=== PATIENT | male | born 1935 | race African-American/Black ===

== ENCOUNTER 2021-08-17 22:55 | Emergency (ER) | payer OTHER ==
[~2021-08-17] VITALS: Ht 177.8 cm; Wt 70.0 kg
[2021-08-17] MEDS ORDERED: MORPHINE SULFATE 4 MG/ML CPJ (NOT FOR IM USE) IV ONE (23:15)
[2021-08-17] MEDS ORDERED: NITROGLYCERIN 0.4MG TABLET SL SL PRN (23:15)
[2021-08-17] MEDS ORDERED: ASPIRIN 81MG TABLET PO ONE (23:15)
[2021-08-17 23:32] LABS: HEMATOCRIT. 47.9 % (42.0-52.0); HEMOGLOBIN. 14.5 g/dL (14.0-18.0); MEAN CORPUSCULAR HEMOGLOBIN 22.6 pg (28.0-32.0); MEAN CORPUSCULAR VOLUME 74.8 fL (80.0-94.0); RED BLOOD CELL COUNT 6.41 mill/uL (4.7-6.1); RED CELL DISTRIBUTION WIDTH 18.8 % (11.6-14.6)
[2021-08-17 23:35] LABS: PLATELET 1269 x1000/uL (130-400)
[2021-08-17 23:45] LABS: CHLORIDE 97 mEq/L (98-107)
[2021-08-18] LABS: PLATELET ESTIMATE INCREASED
[2021-08-18] MEDS ORDERED: ENOXAPARIN 80MG/0.8ML SYR SUBCUT NR (06:30)
[2021-08-18 06:33] VITALS: BP 140/59
== END 2021-08-18 06:48 | disposition short-term general hospital (02) ==
LOC: ER 22:55
DX: I24.9 Acute ischemic heart disease, unspecified (principal); D75.839 Thrombocytosis, unspecified; J44.9 Chronic obstructive pulmonary disease, unspecified; Z20.822 Contact with and (suspected) exposure to COVID-19
CPT/HCPCS: 36415; 71045; 74176; 80053; 82962; 83690; 83880; 84484; 85025; 87426; 93005; 96372; 96374; 99291; C9803; J1650; J2270